=== PATIENT | female | born 1995 | race African-American/Black ===

== ENCOUNTER 2017-05-28 16:32 | Day surgery (SDC) | payer MEDICAID ==
[2017-05-28 17:05] VITALS: BP 129/82; TEMP 98.2; BMI 28.3
--- NOTE | 2017-05-28 21:09 | ULT ---
BIOPHYSICAL PROFILE: 05/28/17 HISTORY: 21-year-old female with nonreactive NST at 32 weeks. Multiple longitudinal and transverse images of an intrauterine is obtained using a multihe rtz curvilinear transducer. Real time, color flow and spectral waveform doppler analysis used to javier luate the fetus. Images demonstrate a viable intrauterine with a fetus in the cephalic presentation. The pl acenta is anterior and grade II. Amniotic fluid index measures 12.7 cm. The cardiac activity measures 136 beats per minute. BIOPHYSICAL PROFILE: tone = 2 breathing = 2 movement = 2 Amniotic fluid volume = 2 Composite = 8 out of 8. IMPRESSION: Biophysical profile measures 8 out of 8. POS: [facility]
--- NOTE | 2017-05-28 21:57 | PRG ---
DATE OF SERVICE: 05/28/2017 OB ER ENCOUNTER PRIMARY OB: None. CHIEF COMPLAINT: Abdominal pain. HISTORY OF PRESENT ILLNESS: The patient is a 21-year-old G2, P1 female with an intrauterine pregnan cy at stated 31 weeks gestation who moved to the area after [place] and has not yet establ ished care due to insurance coverage. The patient states on 06/05, she recalling Gaurav and Tristen to make an appointment. The patient reports that she has been having sharp abdominal pain la st couple days, worse with activity and movement and also came in because she had gone without [facility] care for so long. The patient denies any leakage of fluid, vaginal bleeding, uterine contractio ns. She denies urinary urgency or frequency. She denies any recent illnesses, fever, fall, headach e, chest pain, shortness of breath, nausea, vomiting. She has had some diarrhea and constipation th at has been to the . Denies any rashes, denies any hip or knee problems. PAST MEDICAL HISTORY: She has gallstones and possibly anemia. PAST SURGICAL HISTORY: One previous . OBSTETRIC HISTORY: She has had 1 delivery. ALLERGIES: No known drug allergies. MEDICATIONS: vitamins. SOCIAL HISTORY: Admits to smoking prior to . Denies any drug, alcohol or tobacco use duri ng the . OB LABS: Unavailable. REVIEW OF SYSTEMS: Per HPI. PHYSICAL EXAMINATION: VITAL SIGNS: Blood pressure 129/82, temperature 98.2, pulse of 98, and respiratory rate of 18. GENERAL: She appears to be in no acute distress. She is alert and oriented, cooperative and pleasa nt to interact with. HEENT: Normocephalic and atraumatic. CHEST: Clear to auscultation bilaterally. HEART: Regular rate and rhythm. ABDOMEN: Gravid and soft. She has some tenderness to palpation in the upper lateral pelvic area ne ar the inguinal region. EXTREMITIES: Nontender and nonedematous. GENITOURINARY: Has been deferred. heart tracing performed for threatened labor at wi th a baseline of 135 with moderate long-term variability, positive 10/10 accelerations, but not reac tive. A BPP was ordered due to nonreactive NST which showed RODOLFO of 12.5 and a BPP of 8/8. ASSESSMENT AND PLAN: The patient is a 21-year-old female with musculoskeletal ligamentous pain and reassuring fetus by a BPP. The patient has been given reassurance and instructions to follow up wit h her establish care with her OB just as soon as possible. The patient was given labor prec autions.
[2017-05-29] MEDS ORDERED: FLU VACC QS2017-18 36 mo. & older 0.5 ML SYRINGE IM ONE (09:00)
== END 2017-05-28 20:30 | disposition home or self-care (01) ==
LOC: L&D/OP 16:32
PROVIDERS: ATTEND Obstetrics & Gynecology
DX: O99.89 Other specified diseases and conditions complicating pregnancy, childbirth and the puerperium (principal); R10.9 Unspecified abdominal pain; Z79.899 Other long term (current) drug therapy; Z3A.31 31 weeks gestation of pregnancy; Z98.891 History of uterine scar from previous surgery; Z87.891 Personal history of nicotine dependence
CPT/HCPCS: 76815; 76819

== ENCOUNTER 2018-07-26 15:34 | Emergency (ER) | payer MEDICAID ==
[2018-07-26 16:01] LABS: Bilirubin Negative (Negative); Blood, Urine Negative (Negative); Clarity CLEAR (Clear); Glucose, Urine (Dipstick) Negative (Negative); Leukocyte Trace (Negative); Nitrite Positive (Negative); Protein, Urine (Dipstick) Trace mg/dL (Neg-Trace); Specific Gravity, Urine 1.031 (1.002-1.036)
[2018-07-26 16:02] LABS: Bacteria/HPF 1+ HPF (None Seen); Hyaline Casts/LPF 0-3 HYALINE CAST LPF (0-3 Hyaline); Pathc Cast-AUWi Flag 0.43 (0-2.49); RBC/HPF 0-3 HPF (0-3); Squamous Epithelial 0-3 HPF (0-3); WBC/HPF 0-3 HPF (0-3)
[2018-07-26] MEDS ORDERED: Ondansetron ODT 4 MG TAB ONE (16:08)
[2018-07-26 16:36] LABS: Hemoglobin 12.3 g/dL (12.0-16.0); Mean Corpuscular HGB CONC 32.7 g/dL (32.0-36.0); Mean Corpuscular Hemoglobin 28.3 pg (27.0-31.0); Mean Corpuscular Volume 86.4 fL (78.0-98.0); Mean Platelet Volume 7.7 fL (7.4-10.4); Platelet Count 216 thou/uL (130-400); RBC Distribution Width 13.7 % (11.5-14.5); Red Blood Cell (RBC) Count 4.34 mill/uL (4.20-5.40); White Blood Cell (WBC) Count 3.9 thou/uL (4.8-10.8)
[2018-07-26 16:50] LABS: ALT (SGPT) 114 U/L (8-55); AST (SGOT) 68 U/L (5-34); Albumin 4.2 g/dL (3.5-5.0); Alkaline Phosphatase 78 U/L (40-150); Anion Gap 11 mmol/L (10-20); BUN (Urea Nitrogen) 11 mg/dL (7.0-18.7); Bilirubin, Total 0.2 mg/dL (0.2-1.2); Calc. Creatinine Clearance 0 mL/min (70-130); Calcium 9.6 mg/dL (7.8-10.44); Carbon Dioxide 26 mmol/L (22-29); Chloride 106 mmol/L (98-107); Estimated GFR-MDRD Greater than 90; Globulin 3.4 g/dL (2.4-3.5); Glucose 77 mg/dL (70-105); Lipase 16 U/L (8-78); Potassium 3.4 mmol/L (3.5-5.1); Protein, Total 7.6 g/dL (6.0-8.3); Sodium 140 mmol/L (136-145)
[2018-07-26 16:54] LABS: Band 2 % (5-11); Eosinophils 1 % (0-10); Lymphocytes 72 % (21-51); MDiff Complete? YES; Monocytes 6 % (0-10); Neutrophil 19 % (42-75); PLT Morphology Comment Appears Adequate
== END 2018-07-26 18:20 | disposition home or self-care (01) ==
LOC: ERS 15:34
DX: R11.2 Nausea with vomiting, unspecified (principal); N39.0 Urinary tract infection, site not specified; F17.210 Nicotine dependence, cigarettes, uncomplicated
CPT/HCPCS: 36415; 80053; 81003; 81015; 83690; 85025; 99284; Q0162

== ENCOUNTER 2018-08-02 09:05 | Emergency (ER) | payer MEDICAID, OTHER | END 2018-08-02 09:33 | disposition home or self-care (01) | LOC: ERS 09:05 | DX: S39.012A Strain of muscle, fascia and tendon of lower back, initial encounter (principal); F17.210 Nicotine dependence, cigarettes, uncomplicated; X58.XXXA Exposure to other specified factors, initial encounter | CPT/HCPCS: 99283 ==

== ENCOUNTER 2019-02-08 01:36 | Emergency (ER) | payer OTHER ==
[2019-02-08 02:52] LABS: #Eosinphils 0.1 thou/uL (0.0-0.7); #Lymphocytes 2.2 thou/uL (1.20-3.40); #Monocytes 0.4 thou/uL (0.11-0.59); #Neutrophils 3.5 thou/uL (1.40-6.50); %Basophils 0.3 % (0.0-1.0); %Eosinophils 2.1 % (0.0-10.0); %Lymphocytes 34.8 % (21.0-51.0); %Monocytes 6.4 % (0.0-10.0); %Neutrophils 56.4 % (42.0-75.0); Hemoglobin 11.8 g/dL (12.0-16.0); Mean Corpuscular HGB CONC 33.7 g/dL (32.0-36.0); Mean Corpuscular Hemoglobin 28.9 pg (27.0-31.0); Mean Corpuscular Volume 85.7 fL (78.0-98.0); Mean Platelet Volume 6.7 fL (7.4-10.4); Platelet Count 234 thou/uL (130-400); RBC Distribution Width 11.7 % (11.5-14.5); Red Blood Cell (RBC) Count 4.09 mill/uL (4.20-5.40); White Blood Cell (WBC) Count 6.2 thou/uL (4.8-10.8)
[2019-02-08 03:22] LABS: ALT (SGPT) 10 U/L (8-55); AST (SGOT) 13 U/L (5-34); Albumin 4.1 g/dL (3.5-5.0); Alkaline Phosphatase 45 U/L (40-150); Anion Gap 11 mmol/L (10-20); BUN (Urea Nitrogen) 9 mg/dL (7.0-18.7); Bilirubin, Total 0.2 mg/dL (0.2-1.2); Calc. Creatinine Clearance 0 mL/min (70-130); Calcium 9.8 mg/dL (7.8-10.44); Carbon Dioxide 25 mmol/L (22-29); Chloride 104 mmol/L (98-107); Estimated GFR-MDRD Greater than 90; Globulin 2.9 g/dL (2.4-3.5); Glucose 85 mg/dL (70-105); Potassium 4.1 mmol/L (3.5-5.1); Sodium 136 mmol/L (136-145)
[2019-02-08 03:35] LABS: Bilirubin Negative (Negative); Blood, Urine Negative (Negative); Clarity Turbid (Clear); Glucose, Urine (Dipstick) Normal (Negative); Leukocyte Negative Leu/uL (Negative); Nitrite Negative (Negative); Protein, Urine (Dipstick) 20 mg/dL (Neg-Trace)
[2019-02-08] MEDS ORDERED: Ondansetron ODT 4 MG TAB ONE (03:55)
[2019-02-08] MEDS ORDERED: Dicyclomine 20 MG TAB ONE (03:55)
--- NOTE | 2019-02-08 07:52 | ULT ---
PELVIC ULTRASOUND: Transabdominal pelvic ultrasound; jensen scale and Doppler color flow imaging performed. CLINICAL HISTORY: History of abdominal pain, patient. FINDINGS: An intrauterine gestation is demonstrated which, by ultrasound imaging, corresponds to a 9-week-5 day gestation placing estimated date of delivery by ultrasound of 09/08/2019. cardiac activity is d ocumented at 162 b.p.m. Doppler evaluation does reveal flow to each ovary, with waveform solicited. There is a physiologic-appearing cyst at the left ovary approximately 2 cm in size. There is no sig nificant free pelvic fluid. IMPRESSION: 1. Early live intrauterine gestation as above. 2. Dominant, physiologic-appearing cyst of the left ovary. POS: [facility]
--- NOTE | 2019-02-08 07:57 | ULT ---
GALLBLADDER ULTRASOUND: INDICATION: Abdominal pain, pain. FINDINGS: There is evidence of shadowing cholelithiasis. The gallbladder wall is borderline in size at 3 mm. Dominguez's sign is reported as negative by clocksmith. There is no evidence of focal hepatic lesion. The common duct is normal in diameter at 2 mm. No ascites is seen. IMPRESSION: Shadowing cholelithiasis. Borderline-sized gallbladder wall. Recommend clinical correlation for osmin dence of associated cholecystitis. Surgical consultation may prove useful in this regard. POS: [facility]
== END 2019-02-08 04:51 | disposition home or self-care (01) ==
LOC: ERS 01:36
DX: O99.611 Diseases of the digestive system complicating pregnancy, first trimester (principal); K29.70 Gastritis, unspecified, without bleeding; O99.331 Smoking (tobacco) complicating pregnancy, first trimester; F17.210 Nicotine dependence, cigarettes, uncomplicated; Z3A.10 10 weeks gestation of pregnancy
CPT/HCPCS: 36415; 76705; 76856; 80053; 81003; 84702; 85025; Q0162

== ENCOUNTER 2019-06-10 18:14 | Day surgery (SDC) | payer OTHER ==
[2019-06-10 18:59] VITALS: BMI 27.1
[2019-06-10] MEDS ORDERED: hydrALAZINE 20 MG/ML VIAL SLOW IVP PRN (20:01)
[2019-06-10 20:27] LABS: Bacteria/HPF None Seen HPF (None Seen); Bilirubin Negative (Negative); Blood, Urine Negative (Negative); Clarity Clear (Clear); Glucose, Urine (Dipstick) Normal (Negative); Leukocyte Negative Leu/uL (Negative); Mucous/LPF 1+ LPF (<2+); Nitrite Negative (Negative); Protein, Urine (Dipstick) 50 mg/dL (Neg-Trace); RBC/HPF 0-3 HPF (0-3); Urobilinogen 3 mg/dL (Less than 2)
[2019-06-10 20:29] LABS: Urine Culture Reflex No No
--- NOTE | 2019-06-10 21:15 | PRG ---
DATE OF SERVICE: 06/10/2019 PRIMARY OB: [facility], Dr. Bermudez. CHIEF COMPLAINT: Abdominal burning and decreased movement. HISTORY OF PRESENT ILLNESS: The patient is a 23-year-old G3, P2 female with an intrauterine at 27 weeks gestation who is coming to Labor and Delivery with concerns of decreased movement today and a burning in her upper abdomen. The patient reports that burning is in her skin that has been going on for several days now, is not associated with eating or any particular activities. She does report that it is in the vicinity of the lower part of her bra and that she has not been wearing a bra for the last several days because of this sensation. The patient reports that she has had similar symptoms in a previous on a different part of her abdomen. She also reports in this area that there is a discoloration that in the wintertime is darker than the rest of her skin and in the summertime seems to be phone engineer than the rest of her skin. She denies any history of fungal infections or any previous treatments for fungal infections. The patient reports at time of my evaluation that she has been feeling the baby move and now that the baby has been put on the monitor. She has not had any complications with this thus far except for some periodic dizziness that she feels associated with feeling like things are closing in that she starts seeing spots and feels like she is going to pass out. Also associated with getting up or standing for periods of time. PAST MEDICAL HISTORY: She has gallbladder stones, but she manages with diet. PAST SURGICAL HISTORY: She has had 2 previous C-sections. SOCIAL HISTORY: Denies drug, alcohol, or tobacco use. ALLERGIES: NO KNOWN DRUG ALLERGIES. MEDICATIONS: vitamins. OB LABS: Unavailable at time of dictation. PHYSICAL EXAMINATION: VITAL SIGNS: Blood pressure 106/60, heart rate of 97, saturating 98% to 99% on room air, temperature 99.3, respiratory rate of 20. GENERAL: She appears to be in no acute distress. She is alert, oriented, cooperative, and pleasant to interact with. HEENT: Head is normocephalic, atraumatic. LUNGS: Clear to auscultation bilaterally. HEART: Has regular rate and rhythm. ABDOMEN: Gravid, soft, nontender. She does have some skin sensitivity to palpation in her upper abdomen under her breast, more centrally located in this area. There is no tenderness to deep palpation. There is no tenderness associated with muscle cameron. The area does have some discoloration, irregular in shape. There are 2-3 distinct areas with careful observation. These discolorations do not appear to be anywhere else in the vicinity where her bra touches her skin. EXTREMITIES: Nontender, nonedematous. heart tracing shows the fetus with a baseline in the 150s with moderate long-term variability, appropriate for 27-week gestation with some 10 x 10 accelerations. Tocometer has no contractions. Urinalysis is positive for ketones, 7-10 squamous cells, no bacteria, no leukocyte esterase, no nitrites. ASSESSMENT AND PLAN: The patient is a 23-year-old female with an intrauterine at 27 weeks who may be experiencing a tinea versicolor or another tinea in the area where her bra is fitted to her skin under her breast. The recommendations given to her at this time is to use 2 antifungal creams or sprays of different antifungal medications to be placed twice a day for the next 30 days and a topical steroid if the itching, burning sensation is not improving. The patient has an appointment with her primary OB in about 3 weeks who can follow up at that time. She has been given labor precautions. Urinalysis does not appear to have evidence of urinary tract infection. The patient has been counseled to drink plenty of water as this can help with her what sounds like vasovagal response and sluggish circulatory system. The patient has expressed understanding and has agreed to comply. Fetus has a category 1 tracing and reassuring for gestational age. Job ID: [id number]
== END 2019-06-10 20:10 | disposition home or self-care (01) ==
LOC: L&D/OP 18:14
PROVIDERS: ATTEND Obstetrics & Gynecology
DX: O36.8120 Decreased fetal movements, second trimester, not applicable or unspecified (principal); O99.89 Other specified diseases and conditions complicating pregnancy, childbirth and the puerperium; R10.10 Upper abdominal pain, unspecified; O99.612 Diseases of the digestive system complicating pregnancy, second trimester; K80.20 Calculus of gallbladder without cholecystitis without obstruction; Z3A.27 27 weeks gestation of pregnancy; Z91.040 Latex allergy status
CPT/HCPCS: 81001; 99283

== ENCOUNTER 2020-04-09 16:04 | Emergency (ER) | payer OTHER ==
[2020-04-09] MEDS ORDERED: Acetaminophen 500 MG TAB ONE (16:29)
== END 2020-04-09 16:53 | disposition home or self-care (01) ==
LOC: ERS 16:04
DX: S01.511A Laceration without foreign body of lip, initial encounter (principal); F17.210 Nicotine dependence, cigarettes, uncomplicated; Y04.0XXA Assault by unarmed brawl or fight, initial encounter
CPT/HCPCS: 99406

== ENCOUNTER 2023-07-19 12:52 | Emergency (ER) | payer BC, OTHER ==
[2023-07-19] MEDS ORDERED: Ondansetron ODT 4 MG TAB ONE (13:27)
[2023-07-19] MEDS ORDERED: Acetaminophen 500 MG TAB ONE (13:27)
[2023-07-19 13:38] LABS: #Eosinphils 0.1 thou/uL (0.0-0.7); #Monocytes 0.5 thou/uL (0.11-0.59); #Neutrophils 4.1 thou/uL (1.40-6.50); %Basophils 0.5 % (0.0-1.0); %Eosinophils 1.8 % (0.0-10.0); %Lymphocytes 21.9 % (21.0-51.0); %Monocytes 8.1 % (0.0-10.0); %Neutrophils 67.4 % (42.0-75.0); Hematocrit 39.9 % (36.0-47.0); Hemoglobin 13.2 g/dL (12.0-16.0); Mean Corpuscular HGB CONC 33.1 g/dL (32.0-36.0); Mean Corpuscular Hemoglobin 29.4 pg (27.0-31.0); Mean Corpuscular Volume 88.9 fl (78.0-98.0); Mean Platelet Volume 9.4 fL (7.4-10.4); Platelet Count 245 10x3/uL (130-400); RBC Distribution Width 12.4 % (11.5-14.5); Red Blood Cell (RBC) Count 4.49 mill/uL (4.20-5.40); White Blood Cell (WBC) Count 6.1 10x3/uL (4.8-10.8)
[2023-07-19 13:46] LABS: Bilirubin Negative (Negative); Blood, Urine Negative (Negative); Clarity Clear (Clear); Glucose, Urine (Dipstick) Normal (Negative); Ketone, Urine Negative (Negative); Leukocyte Negative Leu/uL (Negative); Nitrite 2+ (Negative); Protein, Urine (Dipstick) Negative (Neg-Trace); Specific Gravity, Urine 1.023 (1.002-1.036); Urobilinogen Normal mg/dL (Less than 2)
[2023-07-19 13:47] LABS: CAUTI Indications for Culture Dysuria,urgency,freq; RBC/HPF 0-3 HPF (0-3)
[2023-07-19 13:50] LABS: Bacteria/HPF 1+ HPF (None Seen); Urine Culture Reflex No No
[2023-07-19 13:51] LABS: Pregnancy Test - Urine (BHCG) POSITIVE (Negative); Pregu Control Background? CLEAR/WHITE (CLR/WHITE); Pregu Control Bar Appear? YES (CONTROL BAR); Specific Gravity 1.023 (1.002-1.036)
[2023-07-19 14:00] LABS: ALT (SGPT) 17 U/L (8-55); AST (SGOT) 23 U/L (5-34); Albumin 4.5 g/dL (3.5-5.0); Alkaline Phosphatase 56 U/L (40-110); Anion Gap 13 mmol/L (10-20); BUN (Urea Nitrogen) 11 mg/dL (7.0-18.7); Bilirubin, Total 0.3 mg/dL (0.2-1.2); Calc. Creatinine Clearance 0 mL/min (70-130); Calcium 9.8 mg/dL (7.8-10.44); Carbon Dioxide 23 mmol/L (22-29); Chloride 105 mmol/L (98-107); Estimated GFR 112; Globulin 3.3 g/dL (2.4-3.5); Glucose 85 mg/dL (70-105); Potassium 3.9 mmol/L (3.5-5.1); Protein, Total 7.8 g/dL (6.0-8.3); Sodium 137 mmol/L (136-145)
== END 2023-07-19 15:51 | disposition home or self-care (01) ==
LOC: ERS 12:52
DX: O26.891 Other specified pregnancy related conditions, first trimester (principal); O99.891 Other specified diseases and conditions complicating pregnancy; O99.331 Smoking (tobacco) complicating pregnancy, first trimester; R82.71 Bacteriuria; Z3A.00 Weeks of gestation of pregnancy not specified
CPT/HCPCS: 36415; 76801; 80053; 81001; 81025; 84702; 85025; 87077; 87086; 87186; 87804; Q0162

== ENCOUNTER 2023-08-16 10:21 | Emergency (ER) | payer BC, OTHER ==
[2023-08-16 11:21] LABS: Hemoglobin 12.2 g/dL (12.0-16.0); Manual Diff?? YES; Mean Corpuscular Hemoglobin 28.8 pg (27.0-31.0); Mean Corpuscular Volume 87.3 fl (78.0-98.0); Mean Platelet Volume 9.3 fL (7.4-10.4); Platelet Count 246 10x3/uL (130-400); RBC Distribution Width 12.2 % (11.5-14.5); Red Blood Cell (RBC) Count 4.24 mill/uL (4.20-5.40); White Blood Cell (WBC) Count 3.9 10x3/uL (4.8-10.8)
[2023-08-16 11:22] LABS: Delete Auto Diff?? YES
[2023-08-16 11:31] LABS: BHCG - Serum POSITIVE (NEGATIVE); Pregs Control Bar Appear? YES (CONTROL BAR)
[2023-08-16 11:32] LABS: Pregs Control Background? CLEAR/WHITE (CLR/WHITE)
[2023-08-16 11:47] LABS: ALT (SGPT) 77 U/L (8-55); AST (SGOT) 45 U/L (5-34); Albumin 4.3 g/dL (3.5-5.0); Alkaline Phosphatase 70 U/L (40-110); Anion Gap 11 mmol/L (10-20); BUN (Urea Nitrogen) 9 mg/dL (7.0-18.7); Bilirubin, Total 0.4 mg/dL (0.2-1.2); Calc. Creatinine Clearance 0 mL/min (70-130); Calcium 9.2 mg/dL (7.8-10.44); Carbon Dioxide 25 mmol/L (22-29); Chloride 107 mmol/L (98-107); Estimated GFR 122; Globulin 3.3 g/dL (2.4-3.5); Glucose 87 mg/dL (70-105); Potassium 3.8 mmol/L (3.5-5.1); Protein, Total 7.6 g/dL (6.0-8.3); Sodium 139 mmol/L (136-145)
[2023-08-16 11:52] LABS: Bacteria/HPF 2+ HPF (None Seen); Bilirubin Negative (Negative); Blood, Urine 1+ (Negative); CAUTI Indications for Culture Pregnancy; Glucose, Urine (Dipstick) Normal (Negative); Ketone, Urine Trace mg/dL (Negative); Leukocyte Negative Leu/uL (Negative); Nitrite Negative (Negative); Protein, Urine (Dipstick) Negative (Neg-Trace); RBC/HPF 0-3 HPF (0-3); Specific Gravity, Urine 1.022 (1.002-1.036); Urobilinogen Normal mg/dL (Less than 2)
[2023-08-16 11:52] LABS: Band 2 % (5-11); CellaVision Operator ID LAB.KW3; Eosinophils 2 % (0-10); Lymphocytes 32 % (21-51); Monocytes 8 % (0-10); Neutrophil 45 % (42-75); Platelet Adequacy Comment Platelets Normal; RBC Morphology Within Normal Limits; Reactive Lymphocytes 12 % (0-10); Total Cell Count 101
[2023-08-16 11:53] LABS: Clarity Hazy (Clear)
[2023-08-16 12:01] LABS: Urine Culture Reflex Yes Yes
[2023-08-16] MEDS ORDERED: Ondansetron ODT 4 MG TAB ONE (12:07)
== END 2023-08-16 14:55 | disposition home or self-care (01) ==
LOC: ERS 10:21
DX: O20.0 Threatened abortion (principal); O23.91 Unspecified genitourinary tract infection in pregnancy, first trimester; R82.71 Bacteriuria; O99.331 Smoking (tobacco) complicating pregnancy, first trimester; F17.210 Nicotine dependence, cigarettes, uncomplicated; Z3A.01 Less than 8 weeks gestation of pregnancy
CPT/HCPCS: 36415; 76856; 80053; 81001; 84702; 84703; 85025; 86900; 86901; 87077; 87086; Q0162